=== PATIENT | female | born 1960 | race Caucasian/White ===

== ENCOUNTER 2017-02-17 12:27 | Emergency (ER) | payer OTHER ==
[~2017-02-17] VITALS: Ht 172.7 cm; Wt 83.2 kg
[~2017-02-17 12:27] MED LIST: ALBU8.5H2 IH; ARIP5TAB5 PO; DIAZ2TAB2 PO; GABA600T2 PO; LUBI24CA4 PO; METO25TA6 PO; MORP60TA51 PO; OMEP40CA36 PO; POLY17PO6 PO; SIMV10TA4 PO
[2017-02-17 12:43] VITALS: BP 149/83; PULSE 66; RESP 22; O2SAT 99
--- NOTE | 2017-02-17 14:02 | ED.REPORT ---
HPI-Extremity Problem Upper Date of Service Feb 17, 2017 ED Provider: Benita Juan History of Present Illness: left hand injection for dupren's zylocaine, swelling in arm. has never had a reaction. right hand dominant. Injection done at Dr. Nazario office. Has spoken with him about this earlier but the arm swelling is new. Nursing Notes Stated Complaint: REACTION TO INJECTION IN LEFT HAND Chief Complaint: Extremity Trauma Nursing Notes Reviewed: Yes Allergies: Coded Allergies: acetaminophen (Unverified Adverse Reaction, Intermediate, Headache, ) Scheduled Aripiprazole (Abilify) 5 Mg Tablet 7.5 MG PO DAILY Gabapentin (Gabapentin) 600 Mg Tablet 600 MG PO TID Lubiprostone (Amitiza) 24 Mcg Capsule 24 MCG PO BIDWM Metoprolol Tartrate (Metoprolol Tartrate) 25 Mg Tablet 12.5 MG PO BID Morphine Sulfate ER (Morphine Sulfate ER) 60 Mg Tablet.er 60 MG PO HS Omeprazole (Omeprazole) 40 Mg Capsule.dr 40 MG PO DAILYAC Polyethylene Glycol 3350 (Miralax) 17 Gm Powd.pack 17 GM PO DAILY Simvastatin (Simvastatin) 10 Mg Tablet 10 MG PO PM Scheduled PRN Albuterol HFA (Proair HFA) 8.5 Gm Hfa.aer.ad 2 PUFFS IH Q4-6H PRN PRN as needed Diazepam (Diazepam) 2 Mg Tablet 2 MG PO TID PRN PRN For Anxiety General Time Seen by MD: 14:00 Chief Complaint Other (hand swelling and arm swelling) Hx Obtained From: Patient Onset Occurred: 1 - 4 hours ago Symptom Duration: Since onset Past Medical History Past Medical History Reports: Asthma Past Surgical History hip surgery on right, ovaries Smoking History Current Every Day Smoker (1/2 pack a day for 42 years) Social History Alcohol Use: "Social" Drug Use: Denies drug use Occupation seperated, no work or school 02/17/2017 Ambulatory Status Independent Review of Systems Basic Review of Systems Eyes: Vision NL, No discharge Cardiovascular: No chest pain, No dyspnea on exertion, No orthopnea, No parox noct dyspnea, No palpitations Psychiatric: Normal thought content Physical Exam Initial Vital Signs Vital Signs (First) Date Time Temp Pulse Resp B/P Pulse Ox O2 Delivery O2 Flow Rate FiO2 02/17/17 12:43 36.5 66 22 149/83 99 Room Air Initial VS: Reviewed, Vital signs normal General/Constitutional: Well-developed, Well-nourished Head / Eyes: Atraumatic, Normocephalic, PERRL ENT: Mucous membranes moist, Conjunctiva normal, No scleral icterus Neck: Supple, Non-tender, Full range of motion Respiratory: Breath sounds normal, Clear to auscultation, No respiratory distress Cardiovascular: Regular rate & rhythm, Heart sounds normal, Intact distal pulses Abdomen / GI: Soft, Non-tender, No guarding, No rebound, No distention Back: No CVA tenderness Lymphatic: No lymphadenopathy Lower Extremities: Vascular intact, Neuro intact, No swelling, No tenderness Skin: Warm, Dry, No cyanosis Neurologic: Alert, Oriented, Nonfocal Psychiatric: Mood/affect normal, Behavior normal, Normal thought content General/Constitutional: Awake, Alert, No acute distress, Well appearing, Well developed, Well hydrated Respiratory / Chest: Atraumatic, Breath sounds NL, Breath sounds = bilat, No respiratory distress Cardiovascular: Heart rate NL, Regular rhythm, Heart sounds NL left hand has mild swelling with the inner aspect of the wrist having a 2 cm by 1 cm area of mild swelling and just distally to the elbow is a 3 cm by 5 cm area of soft tissue swelling with an area of erthyma as in a pnich. No increased warmth, no sign of infection Re-Eval/Medical Decision Med Decision/Clinical Course Discussed with Dr. Nazario. Continue with ice and benadryl and keep appointment on Friday, return if needed. No sign of compartment syndrome Discharge & Departure Impression: Primary Impression: Drug reaction Disposition: Home Additional Instructions: The ultrasound shows edema, fluid, which is what we can see. Continue with the benadryl and ice to the site. Keep the appointment with Dr. Nazario on Friday. If you have any concerns, return to the ER. Referrals: Gurvinder Flores MD (PCP) Rene Nazario DO EDSupervising Provider for APC: Danis Doll MD copies to: Rene Nazario DO; Gurvinder Flores MD, Sue ARNP Feb 17, 2017 14:02
--- NOTE | 2017-02-18 08:21 | DRSVH ---
PROCEDURE: US EXTREMITY SONOGRAM LIMITED ([id number]) INDICATIONS: Localized swelling on forearm, evaluate for fluid versus blood. TECHNIQUE: Real-time scanning was performed of the left forearm, with image documentation. COMPARISON: None. FINDINGS: Ultrasound evaluation in the area of clinical findings demonstrates subcutaneous edema without a disc rete drainable fluid collection. There is a small ovoid hypoechoic subcutaneous region with indistin ct margins measuring approximately 1.4 x 0.4 x 1.2 cm without internal vascularity. IMPRESSION: 1. No discrete drainable fluid collections identified. 2. Small ovoid hypoechoic subcutaneous region with indistinct margins demonstrated may represent a s mall hematoma. Dictated by: Jeremy Aldrich M.D. on 02/18/2017 at 8:13 Approved by: Jeremy Aldrich M.D. on 02/18/2017 at 8:19
== END 2017-02-17 15:01 | disposition home or self-care (01) ==
LOC: SED 12:27
DX: M79.89 Other specified soft tissue disorders (principal); T41.1X5A Adverse effect of intravenous anesthetics, initial encounter; Y84.8 Other medical procedures as the cause of abnormal reaction of the patient, or of later complication, without mention of misadventure at the time of the procedure; Y93.9 Activity, unspecified; Y92.9 Unspecified place or not applicable; Y99.9 Unspecified external cause status; F17.200 Nicotine dependence, unspecified, uncomplicated; Z79.899 Other long term (current) drug therapy; Z88.6 Allergy status to analgesic agent